=== PATIENT | male | born 1970 | race African-American/Black ===

== ENCOUNTER 2021-03-22 09:35 | Outpatient (RCR) | payer BC, SELFPAY | END 2021-06-07 11:49 | disposition home or self-care (01) | LOC: ANHDMC 09:35 | PROVIDERS: PCP Internal Medicine Infectious Disease; Visit Provider Internal Medicine Endocrinology, Diabetes & Metabolism | DX: E11.65 Type 2 diabetes mellitus with hyperglycemia (principal); Z71.89 Other specified counseling | CPT/HCPCS: G0108 ==